=== PATIENT | male | born 1960 | race Caucasian/White ===

== ENCOUNTER 2019-08-31 20:25 | Inpatient (IN) ==
[2019-08-31 21:18] LABS: Basophils # 0.1 K/mcL (0.0-0.2); Basophils % 0.8 %; Eosinophils # 0.3 K/mcL (0.0-0.6); Hematocrit 43.5 % (37.5-50.1); Hemoglobin 14.7 g/dL (12.9-16.9); Immature Granulocytes % 0.2 % (0-4); Lymphocytes # 1.4 K/mcL (0.6-4.6); Lymphocytes % 22.1 %; Mean Corpuscular HGB Conc 33.8 g/dL (31.6-35.5); Mean Corpuscular Hemoglobin 31.3 pg (28.0-33.3); Mean Corpuscular Volume 92.6 fL (83.0-100.0); Mean Platelet Volume 9.4 fL (9.4-12.4); Monocytes # 0.6 K/mcL (0.0-1.3); Monocytes % 10.1 %; Neutrophils # 3.8 K/mcL (1.6-8.9); Platelet Count 163 K/mcL (140-400); Red Cell Distribution Width 12.6 % (11.5-14.5); Segmented Neutrophils % 61.8 %; White Blood Count 6.2 K/mcL (4.3-11.1)
[2019-08-31 21:19] LABS: Bilirubin,Urine Negative (Negative); Blood,Urine Negative (Negative); Clarity,Urine Clear (Clear); Color,Urine Yellow (Yellow); Glucose,Urine (UA) Normal (Normal); Ketones,Urine Negative (Negative); Leukocyte Esterase,Urine Negative (Negative); Nitrite,Urine Negative (Negative); Protein,Urine Negative (Neg-Trace); Specific Gravity,Urine 1.013 (1.010-1.025); Urobilinogen,Urine Normal (Normal)
[2019-08-31 21:27] LABS: Amphetamine Screen,Urine Negative ng/mL (Cutoff=1000); Barbiturate Screen,Urine Negative ng/mL (Cutoff=200); Benzodiazepines Screen,Urine Negative ng/mL (Cutoff=200); Cannabinoid Screen,Urine Negative ng/mL (Cutoff = 50); Cocaine Screen,Urine Negative ng/mL (Cutoff= 300); Opiate Screen,Urine Negative ng/mL (Cutoff=300); Phencyclidine Screen,Urine Negative ng/mL (Cutoff=25)
[2019-08-31 21:36] LABS: Acetaminophen < 10 mcg/mL (10-20); BUN/Creatinine Ratio 20 (6-26); Blood Urea Nitrogen 16 mg/dL (6-20); Calcium 9.4 mg/dL (8.6-10.3); Carbon Dioxide 25 mEq/L (23-29); Chloride 105 mEq/L (98-107); Ethanol < 10 mg/dL (Less than 10); Glucose 93 mg/dL (70-105); Osmolality,Calculated 285 (280-300); Potassium 4.1 mEq/L (3.5-5.1); Salicylate < 2.5 mg/dL (15.0-30.0); Sodium 137 mEq/L (136-145); eGFR For African Americans > 60 (> 60); eGFR For Non-African Americans > 60 (> 60)
[2019-08-31] MEDS ORDERED: *HR* LORazepam 2 MG/ML VIAL IM PRN (23:42)
[2019-08-31] MEDS ORDERED: Mag Hydrox/Al Hydrox/Simeth 30 ML UDC PO PRN (23:42)
[2019-08-31] MEDS ORDERED: *HR* LORazepam 1 MG TABLET PO PRN (23:42)
[2019-08-31] MEDS ORDERED: Haloperidol Lactate 5 MG/ML VIAL IM PRN (23:42)
[2019-08-31] MEDS ORDERED: Acetaminophen 325 MG TABLET PO PRN (23:42)
[2019-09-01] MEDS: hydrOXYzine pamoate 25 MG CAPSULE PO PRN ×2 (00:32→22:10)
[2019-09-01] MEDS: Cholecalciferol (D-3) 1,000 UNIT (25MCG) TABLET PO SCH (10:31)
[2019-09-01] MEDS: Lithium Carbonate 300 MG CAPSULE PO SCH (21:55)
[2019-09-01] MEDS: Sennosides/Docusate Sodium TABLET PO SCH (21:55)
[2019-09-01] MEDS ORDERED: *HR* LORazepam 1 MG TABLET PO ONE (22:53)
[2019-09-02] MEDS: Sennosides/Docusate Sodium TABLET PO SCH ×2 (11:26→21:33)
[2019-09-02] MEDS: Cholecalciferol (D-3) 1,000 UNIT (25MCG) TABLET PO SCH (11:26)
[2019-09-02] MEDS: Lithium Carbonate 300 MG CAPSULE PO SCH (21:33)
[2019-09-02] MEDS: hydrOXYzine pamoate 25 MG CAPSULE PO PRN (23:06)
[2019-09-02] MEDS: traZODone 50 MG TABLET PO PRN (23:06)
[2019-09-03 08:48] LABS: Chol/HDL Ratio 3.5 (0-4.9); Cholesterol 115 mg/dL (< 200); HDL Cholesterol 33 mg/dL (40-59); LDL Cholesterol,Calculated 45 mg/dL (0-99); Triglycerides 187 mg/dL (< 150); eGFR For African Americans > 60 (> 60); eGFR For Non-African Americans > 60 (> 60)
[2019-09-03 08:49] LABS: Albumin/Globulin Ratio 1.5 (1.1-2.2); Bilirubin,Direct 0.1 mg/dL (0.0-0.2); Bilirubin,Indirect 0.3 mg/dL (0.0-1.0); Bilirubin,Total 0.4 mg/dL (0.3-1.0); Blood Urea Nitrogen 20 mg/dL (6-20); Globulin 2.7 g/dL (2.4-3.5); Total Protein 6.7 g/dL (6.4-8.9)
[2019-09-03 09:02] LABS: Thyroid Stimulating Hormone 4.627 mcIU/mL (0.340-5.600)
[2019-09-03] MEDS: Sennosides/Docusate Sodium TABLET PO SCH ×2 (09:45→21:12)
[2019-09-03] MEDS: Cholecalciferol (D-3) 1,000 UNIT (25MCG) TABLET PO SCH (09:46)
[2019-09-03] MEDS: MOM Conc 10 ML UD.LIQ PO PRN (15:14)
[2019-09-03] MEDS: Lithium Carbonate 300 MG CAPSULE PO SCH (21:12)
[2019-09-03] MEDS: hydrOXYzine pamoate 25 MG CAPSULE PO PRN (21:13)
[2019-09-03] MEDS: traZODone 50 MG TABLET PO PRN (21:13)
[2019-09-04] MEDS: Cholecalciferol (D-3) 1,000 UNIT (25MCG) TABLET PO SCH (09:21)
[2019-09-04] MEDS: Sennosides/Docusate Sodium TABLET PO SCH ×2 (09:22→21:50)
[2019-09-04] MEDS: MOM Conc 10 ML UD.LIQ PO PRN (09:45)
[2019-09-04] MEDS: Lithium Carbonate 300 MG CAPSULE PO SCH (21:49)
[2019-09-05] MEDS: Cholecalciferol (D-3) 1,000 UNIT (25MCG) TABLET PO SCH (09:10)
[2019-09-05] MEDS: Sennosides/Docusate Sodium TABLET PO SCH ×2 (09:10→20:39)
[2019-09-05] MEDS: Lithium Carbonate 300 MG CAPSULE PO SCH (20:39)
[2019-09-05] MEDS ORDERED: Sennosides/Docusate Sodium TABLET PO SCH (21:00)
[2019-09-06] MEDS: Cholecalciferol (D-3) 1,000 UNIT (25MCG) TABLET PO SCH (08:44)
[2019-09-06] MEDS: Sennosides/Docusate Sodium TABLET PO SCH ×2 (08:45→20:21)
[2019-09-06 11:28] LABS: Lithium 0.3 mEq/L (0.6-1.2)
[2019-09-06] MEDS: hydrOXYzine pamoate 25 MG CAPSULE PO PRN (20:21)
[2019-09-06] MEDS: Lithium Carbonate 300 MG CAPSULE PO SCH (20:21)
[2019-09-07] MEDS: Cholecalciferol (D-3) 1,000 UNIT (25MCG) TABLET PO SCH (08:49)
[2019-09-07] MEDS: Sennosides/Docusate Sodium TABLET PO SCH (08:49)
[2019-09-07 08:53] VITALS: BP 119/76
== END 2019-09-07 14:53 | disposition home or self-care (01) | DRG 885 ==
LOC: EMEROOARM 20:25 → SUATTDRO 23:25 → 1ANU 23:25
PROVIDERS: ADMIT Psychiatry & Neurology Psychiatry; ATTEND Psychiatry & Neurology Forensic Psychiatry